=== PATIENT | female | born 1935 | race Caucasian/White ===

== ENCOUNTER 2019-03-25 09:20 | Emergency (ER) | payer MEDICARE, BC ==
[~2019-03-25] VITALS: Ht 162.6 cm; Wt 56.7 kg
[2019-03-25] MEDS ORDERED: ASPIRIN325 MG PO (09:55)
--- NOTE | 2019-03-26 16:04 | EKG ---
[facility] [address] [facility] [place] [address] Signed Normal sinus rhythm Borderline ECG No previous ECGs available Poor data quality, interpretation may be adversely affected Confirmed by JOE QUILES MD ([id number]) on 03/26/2019 4:04:33 PM Electronically Signed By: JOE QUILES MD 03/26/19 1604 PATIENT NAME: MILVIA HARPER Electrocardiogram DATE OF : 31 PHYSICIAN: JOE QUILES MD REPORT #: [id number] REPORT IS CONFIDENTIAL AND NOT TO BE RELEASED WITHOUT AUTHORIZATION
== END 2019-03-25 13:06 | disposition short-term general hospital (02) ==
LOC: ED 09:20
PROC: 0T2BX0Z Change Drainage Device in Bladder, External Approach (ICD-10-PCS; principal; 2019-03-25)
DX: S72.002A Fracture of unspecified part of neck of left femur, initial encounter for closed fracture (principal); Z87.891 Personal history of nicotine dependence; Z88.1 Allergy status to other antibiotic agents; Z79.82 Long term (current) use of aspirin; W18.30XA Fall on same level, unspecified, initial encounter
CPT/HCPCS: 51702; 71045; 72192; 73502; 80053; 81001; 85025; 93005; 93010; 99285-25; J3010; J7040

== ENCOUNTER 2020-12-17 16:48 | Emergency (ER) | payer MEDICARE, BC ==
[~2020-12-17] VITALS: Ht 162.6 cm; Wt 52.2 kg
[~2020-12-17 16:48] MED LIST: ASPIRIN325 MG PO
--- NOTE | 2020-12-18 12:39 | EKG ---
[facility] [address] [facility] [place], [place] [address] Signed Normal sinus rhythm Normal ECG When compared with ECG of 25-MAR-2019 11:27, No significant change was found Confirmed by CHINO CONDON DO ([id number]) on 12/18/2020 12:39:01 PM Electronically Signed By: CHINO CONDON DO 12/18/20 1239 PATIENT NAME: MILVIA HARPER Electrocardiogram DATE OF : 31 PHYSICIAN: CHINO CONDON DO REPORT #: [id number] REPORT IS CONFIDENTIAL AND NOT TO BE RELEASED WITHOUT AUTHORIZATION
== END 2020-12-17 20:52 | disposition short-term general hospital (02) ==
LOC: ED 16:48
DX: S72.031A Displaced midcervical fracture of right femur, initial encounter for closed fracture (principal); Z20.822 Contact with and (suspected) exposure to COVID-19; W18.30XA Fall on same level, unspecified, initial encounter; Z87.891 Personal history of nicotine dependence; Z88.1 Allergy status to other antibiotic agents
CPT/HCPCS: 51702; 71045; 73552; 80053; 81001; 85025; 93005; 93010; 99285-25; C9803; J1170; J2405; U0003